=== PATIENT | female | born 1955 | race Caucasian/White ===

== ENCOUNTER → 2021-03-19 | Day surgery (SDC) | payer MEDICARE ==
[~2021-03-19] VITALS: Ht 167.6 cm; Wt 73.6 kg
[~2021-03-19] MED LIST: ATOR80TA72 PO; HYDROmorphone 2 MG/ML INJ. IVP PRN; IV RINGERS,LACTATED 1000ML 1,000 ML IV SCH; MORPHINE SULFATE 2 MG/ML INJ. IVP PRN; OMEP20CA16 PO; PROCHLORPERAZINE 10 MG/2 ML VIAL. IVP PRN; PROPOFOL 10 MG/ML (20ML) VIAL. IV ONE; fentaNYL PF VIAL 100 MCG/2 ML VIAL IVP PRN
[2021-03-19 08:20] VITALS: BP 132/82
--- NOTE | 2021-03-19 08:49 | CONS ---
DATE OF CONSULTATION: 03/19/2021 UPDATED HISTORY AND PHYSICAL REFERRING PHYSICIAN: Shahzad Castellano MD REASON: Colorectal screening. HISTORY OF PRESENT ILLNESS: A 65-year-old female with past medical history of hyperlipidemia and GERD, seen for screening colon. Bowel habits are regular without diarrhea or constipation. There has been no melena and/or hematochezia. Weight and appetite are stable. No family history of colon cancer at this time. She is otherwise without additional complaints. PAST MEDICAL HISTORY: Hyperlipidemia, GERD. ALLERGIES: None. MEDICATIONS: Atorvastatin and omeprazole. FAMILY HISTORY: Noncontributory. SOCIAL HISTORY: She is a former smoker, former drinker. PAST SURGICAL HISTORY: Significant for tonsillectomy. REVIEW OF SYSTEMS: Per records. PHYSICAL EXAMINATION: GENERAL: Reveals a well-nourished, well-developed female who is alert, cooperative, in no acute distress. VITAL SIGNS: Temperature is 97.9, pulse 101, respirations 20. LUNGS: Clear. CARDIOVASCULAR: Reveals an S1, S2, without S3, S4 or appreciable murmur. ABDOMEN: Reveals a soft abdomen, normal bowel sounds, without appreciable hepatosplenomegaly. IMPRESSION: Colorectal screening is recommended at this time. Risks and benefits of procedure including risk of perforation during operation have been discussed. The patient is willing to proceed. FRANCHESCA DR: Thais TID: [id number]
[2021-03-19 09:26] VITALS: BP 138/60
== END | disposition home or self-care (01) ==
LOC: ENDOS 07:56
PROVIDERS: ATTEND Internal Medicine Gastroenterology
DX: Z12.11 Encounter for screening for malignant neoplasm of colon (principal); K64.0 First degree hemorrhoids; K63.89 Other specified diseases of intestine; K21.9 Gastro-esophageal reflux disease without esophagitis; E78.00 Pure hypercholesterolemia, unspecified; M19.90 Unspecified osteoarthritis, unspecified site; Z85.828 Personal history of other malignant neoplasm of skin; Z87.891 Personal history of nicotine dependence; Z79.899 Other long term (current) drug therapy; Z98.890 Other specified postprocedural states
CPT/HCPCS: G0121; J2704; 45378